=== PATIENT | female | born 1935 | race Caucasian/White ===

== ENCOUNTER 2017-11-07 10:37 | Emergency (ER) | payer MEDICARE, MEDICAID ==
[~2017-11-07] VITALS: Ht 147.3 cm; Wt 63.0 kg
[~2017-11-07 10:37] MED LIST: AMLO5TAB88 PO; ASPI-1160 PO; BENA40TA3 PO; ERGO2000 PO; LINA1TAB PO; ZET10 PO
[2017-11-07] MEDS ORDERED: ONDANSETRON HCL 4MG/2ML VIAL IV STA (11:52)
[2017-11-07] MEDS ORDERED: SODIUM CHLORIDE 0.9% 1,000 ML IV ONE (11:52)
[2017-11-07] MEDS ORDERED: KETOROLAC 30MG/ML VIAL IV STA (11:52)
[2017-11-07 14:30] VITALS: BP 135/72
== END 2017-11-07 14:31 | disposition home or self-care (01) ==
LOC: ER 12:23
DX: R51 Headache (principal); H92.03 Otalgia, bilateral; R11.2 Nausea with vomiting, unspecified; I10 Essential (primary) hypertension; Z90.49 Acquired absence of other specified parts of digestive tract; Z79.82 Long term (current) use of aspirin
CPT/HCPCS: 96361; 96374; 96375; 99285; J1885; J2405; J7030

== ENCOUNTER 2025-01-14 13:11 | Emergency (ER) | payer MEDICARE, MEDICAID ==
[~2025-01-14] VITALS: Ht 157.5 cm; Wt 70.0 kg
[~2025-01-14 13:11] MED LIST changes: -BENA40TA3 PO; +BENA40TA91 PO; +EZET10TA81 PO; -ZET10 PO
[2025-01-14 13:33] VITALS: O2SAT 98
[2025-01-14] MEDS: IBUPROFEN 600MG TABLET PO ONE (13:52)
[2025-01-14] MEDS: GUAIFENESIN/DM 600MG/30MG ER TAB 12HR PO STA (13:52)
[2025-01-14] MEDS ORDERED: IBUP-2029 MT (14:06)
[2025-01-14] MEDS ORDERED: PSEU120T56 MT (14:06)
[2025-01-14 14:25] VITALS: BP 146/57; PULSE 72; RESP 16; TEMP 36.8; O2SAT 100
== END 2025-01-14 15:04 | disposition home or self-care (01) ==
LOC: ER 13:11
DX: J06.9 Acute upper respiratory infection, unspecified (principal); B97.89 Other viral agents as the cause of diseases classified elsewhere; H92.02 Otalgia, left ear; I10 Essential (primary) hypertension; E78.00 Pure hypercholesterolemia, unspecified; E11.9 Type 2 diabetes mellitus without complications; Z79.82 Long term (current) use of aspirin; Z79.84 Long term (current) use of oral hypoglycemic drugs; Z79.899 Other long term (current) drug therapy; M19.90 Unspecified osteoarthritis, unspecified site; Z90.49 Acquired absence of other specified parts of digestive tract
CPT/HCPCS: 99283